=== PATIENT | female | born 1975 | race Caucasian/White ===

== ENCOUNTER 2017-04-20 21:54 | Emergency (ER) | payer MEDICAID ==
[2017-04-20] MEDS ORDERED: ONDANSETRON HCL IV 4 MG/2 ML VIAL IVP ONE (22:13)
[2017-04-20] MEDS ORDERED: MORPHINE SULFATE 5 MG/ML PFS IVP ONE (22:13)
[2017-04-20] MEDS ORDERED: 0.9 % SODIUM CHLORIDE 1000ML 1,000 ML IV SCH (22:15)
--- NOTE | 2017-04-20 22:16 | Emergency Department Record ---
History of Present Illness - General Chief complaint: Flank Pain Stated complaint: RT FLANK PAIN Time Seen by Provider: 04/20/17 22:12 Source: Patient Mode of Arrival: Ambulatory Limitations: No limitations - History of Present Illness Initial comments: 41 yo female presents to ED with a CC of right sided flank pain symptoms for the past 2 days, initially intermittent but becoming more persistent. Patient reports similar symptoms related to kidney stones. Patient denies fevers, chills, nausea, or vomiting symptoms, denies abdominal pain symptoms as well. Patient denies previous abdominal surgeries and denies health problems other than HTN. MD Complaint: Other (flank pain) Onset/Timin -: Days(s) Severity: Severe Severity scale (1-10): 8 Quality: Other Consistency: Constant Improves with: None Worsens with: Other Associated Symptoms: Denies other symptoms - Related Data Home Medications Medication Instructions Recorded Confirmed Last Taken Amlodipine Besylate [Norvasc] 20 mg PO DAILY 04/20/17 04/20/17 Unknown Atorvastatin Calcium [Lipitor] 10 mg PO DAILY 04/20/17 04/20/17 Unknown Pantoprazole Sodium [Protonix] 40 mg PO DAILY 04/20/17 04/20/17 Unknown Previous Rx's Medication Instructions Recorded Ibuprofen [Motrin 600Mg] 600 mg PO Q6H #30 tablet 04/20/17 Allergies Allergy/AdvReac Type Severity Reaction Status Date / Time sulfamethoxazole Allergy SWELLING Verified 04/20/17 22:03 [From Bactrim] OF THE FACE tramadol Allergy ITCHING Verified 04/20/17 22:03 trimethoprim [From Bactrim] Allergy SWELLING Verified 04/20/17 22:03 OF THE FACE Travel Screening - Travel/Exposure Within Last 30 Days Have you traveled within the last 30 days?: No - Travel/Exposure Within Last Year Have you traveled outside the [place] in the last year?: No - Additonal Travel Details Have you been exposed to anyone with a communicable illness?: No - Travel Symptoms Symptom Screening: None Review of Systems Constitutional: Denies: Chills, Fever, Malaise, Night sweats Eyes: Denies: Eye discharge, Eye pain ENT: Denies: Congestion, Ear pain, Epistaxis Respiratory: Denies: Cough, Dyspnea Cardiovascular: Denies: Chest pain, Dyspnea on exertion Endocrine: Denies: Fatigue, Heat or cold intolerance Gastrointestinal: Denies: Abdominal pain, Nausea, Vomiting Genitourinary: Denies: Incontinence, Retention Musculoskeletal: Reports: Back pain. Denies: Arthralgia, Gout, Joint swelling Skin: Denies: Bruising, Change in color Neurological: Denies: Abnormal gait, Confusion, Headache, Seizure Psychiatric: Denies: Anxiety Hematological/Lymphatic: Denies: Anemia, Blood Clots Past Medical History - SOCIAL HISTORY Smoking Status: Current every day smoker Alcohol Use: None Drug Use: None - RESPIRATORY Hx Respiratory Disorders: No - CARDIOVASCULAR Hx Cardio Disorders: Yes Hx Hypertension: Yes - NEURO Hx Neuro Disorders: No - GI Hx GI Disorders: No - Hx Genitourinary Disorders: Yes Hx Kidney Stones: Yes - ENDOCRINE Hx Endocrine Disorders: No - MUSCULOSKELETAL Hx Musculoskeletal Disorders: No - PSYCH Hx Psych Problems: No - HEMATOLOGY/ONCOLOGY Hx Hematology/Oncology Disorders: No Family Medical History Any Significant Family History?: No Physical Exam - General General Appearance: Alert, Oriented x3, Cooperative, Moderate distress Limitations: No limitations - Head Head exam: Atraumatic, Normocephalic, Normal inspection Head exam detail: negative: Abrasion, Contusion, Radford's sign, General tenderness, Hematoma, Laceration - Eye Eye exam: Normal appearance. negative: Conjunctival injection, Periorbital swelling, Periorbital tenderness, Scleral icterus - ENT Ear exam: negative: Auricular hematoma, Auricular trauma Nasal Exam: negative: Active bleeding, Discharge, Dried blood, Foreign body Mouth exam: negative: Drooling, Laceration, Muffled voice, Tongue elevation - Neck Neck exam: Normal inspection. negative: Meningismus, Tenderness - Respiratory Respiratory exam: Normal lung sounds bilaterally. negative: Rales, Respiratory distress, Rhonchi, Stridor - Cardiovascular Cardiovascular Exam: Regular rate, Normal rhythm, Normal heart sounds - GI/Abdominal GI/Abdominal exam: Soft. negative: Rebound, Rigid, Tenderness - Rectal Rectal exam: Deferred - exam: Deferred - Extremities Extremities exam: Normal inspection. negative: Calf tenderness, Pedal edema, Tenderness - Back Back exam: Reports: CVA tenderness (R). Denies: CVA tenderness (L) - Neurological Neurological exam: Alert, Normal gait, Oriented X3 - Psychiatric Psychiatric exam: Normal affect, Normal mood - Skin Skin exam: Normal color. negative: Abrasion Type of lesion: negative: abrasion Course Vital Signs 04/20/17 21:58 Temperature 98.1 F Pulse Rate 83 Respiratory 20 Rate Blood Pressure 180/101 Pulse Ox 96 - Reevaluation(s) Reevaluation #1: 04/20/17 22:48 Labs reviewed, WBC 12.5, UA appears negative for infection or blood. Labs are otherwise grossly unremarkable for an acute process. Patient is currently in CT imaging currently. Reevaluation #2: 04/20/17 23:09 CT Abdomen and Pelvis: No hydronephrosis or urinary tract calculi, small amount FF cul-de-sac/right adenexal region suggesting possible hemorrhagic cyst. Patient was updated on all results and normal UA, does report improvment in her pain symptoms. Given her results, symptoms are likely the result of an ovarian cyst that may have burst. Patient appears stable for discharge with continued symptomatic care as needed with Motrin 600 mg for her pain symptoms. Medical Decision Making - Lab Data Result diagrams: 04/20/17 22:07 04/20/17 22:07 Disposition Disposition: Discharge Clinical Impression: Flank pain, Hemorrhagic cyst of ovary Disposition: Home, Self-Care Condition: (2) Stable Instructions: Flank Pain (ED) Additional Instructions: Return to ED if your symptoms worsen or if you have any concerns. Motrin 600 mg as needed for your pain symptoms. Follow-up with your family doctor in 3-5 days as directed. Prescriptions: Ibuprofen [Motrin 600Mg] 600 mg PO Q6H #30 tablet Forms: Patient Portal Access Time of Disposition: 23:13 Quality - Quality Measures Quality Measures: N/A - Blood Pressure Screening Does Patient Have Any of the Following: No Blood Pressure Classification: Hypertensive Reading Systolic Measurement: 180 Diastolic Measurement: 101 Screening for High Blood Pressure: < First Hypertensive BP, F/U Documented > [ G8950] First Hypertensive Follow-up Interventions: Referral to alternative/primary care provider.
[2017-04-20 22:21] LABS: BASO % 0.3 % (0-6); EOS % 3.4 % (0-6); GRAN % 57.2 % (47-80); HEMOGLOBIN 14.4 gm/dl (11.6-16.0); LYMPH % 29.7 % (16-45); MEAN CELL VOLUME 91.7 fl (81-97); MEAN CORPUSCULAR HEMOGLOBIN 31.4 pg (27-33); MEAN CORPUSCULAR HGB CONC 34.3 g/dl (32-36); MEAN PLATELET VOLUME 10.1 fl (7.4-10.4); MONO % 9.4 % (0-9); PLATELET COUNT 300 K/uL (130-400); RED BLOOD COUNT 4.58 M/uL (3.80-5.40); RED CELL DISTRIBUTION WIDTH 12.7 % (11.5-14.5); WHITE BLOOD COUNT W/O DIFF 12.5 K/uL (4.2-12.2)
[2017-04-20 22:35] LABS: URINE APPEARANCE CLEAR; URINE BILIRUBIN NEGATIVE (NEGATIVE); URINE BLOOD SMALL (NEGATIVE); URINE COLOR YELLOW; URINE GLUCOSE (UA) NEGATIVE (NEGATIVE); URINE KETONE NEGATIVE (NEGATIVE); URINE LEUKOCYTE ESTERASE NEGATIVE (NEGATIVE); URINE NITRITE NEGATIVE (NEGATIVE); URINE PROTEIN NEGATIVE (NEGATIVE); URINE UROBILINOGEN 0.2 E.U./dL (0.20 - 1.00)
[2017-04-20 22:38] LABS: ALB/GLOB RATIO 1.5 (1.1-1.8); ALKALINE PHOSPHATASE 82 U/L (35-104); ALT/SGPT 14 U/L (<33); AST/SGOT 15 U/L (10.0-35.0); BILIRUBIN,TOTAL < 0.20 mg/dL (0.2-1.0); BLOOD UREA NITROGEN 7 mg/dL (6-20); CREATININE 0.7 mg/dL (0.5-0.9); EST GLOMERULAR FILTRATION RATE > 60 mL/min; GLUCOSE,RANDOM 127 mg/dL (74-109); TOTAL PROTEIN 6.7 g/dL (6.6-8.7)
[2017-04-20 22:42] LABS: URINE EPITHELIAL CELLS 0 - 2 (FEW); URINE RBC 0 - 2 (NONE SEEN); URINE WBC 0 - 2 (0-2/hpf)
--- NOTE | 2017-04-22 10:39 | CT SCAN REPORT ---
EXAM: CT SCAN OF THE ABDOMEN AND PELVIS HISTORY: PATIENT HAS RIGHT FLANK PAIN RADIATING DOWNWARDS. TECHNIQUE: Serial axial CT scan of the abdomen and pelvis was performed at 3.75 mm intervals from the dome of the diaphragm down to the pubic symphysis without the use of intravenous contrast. No comparison CT's are available. FINDINGS: Lung windows of the lung bases demonstrate no CT evidence of focal infiltrate or pleural effusion. The visualized heart size and contour is within normal limits. The liver, spleen, pancreas, bilateral adrenal glands, and gallbladder are unremarkable. There is no CT evidence of hydronephrosis or hydroureter. No renal or ureteral calculi are noted. The contour and caliber of the noncontrasted abdominal aorta is within normal limits. There is no CT evidence of retroperitoneal, pelvic, or inguinal lymphadenopathy. The bowel gas pattern is nonspecific and nonobstructive. There is no CT evidence of free intraperitoneal air. The appendix is not clearly visualized, however, there is no gross CT evidence of appendicitis. The urinary bladder is unremarkable. The uterus is unremarkable. Minimal fluid is noted within the right adnexal region. There is a questionable right ovarian cyst. These findings may represent a hemorrhagic ovarian cyst. If there is further clinical concern then ultrasound examination of the pelvis can be obtained for further evaluation. Bone windows demonstrate no CT evidence of a fracture or dislocation of the visualized osseous structures. IMPRESSION: 1. NO CT EVIDENCE OF RENAL OR URETERAL CALCULI. 2. MINIMAL FLUID WITHIN THE RIGHT ADNEXAL REGION AND POSTERIOR CUL-DE-SAC ARE NOTED. THESE FINDINGS MAY BE THE RESULT OF HEMORRHAGIC RIGHT OVARIAN CYST. CLINICAL CORRELATION IS RECOMMENDED. JOB NUMBER: [id number] [facility]
== END 2017-04-20 23:23 | disposition home or self-care (01) ==
LOC: ER 21:54
DX: N83.201 Unspecified ovarian cyst, right side (principal); I10 Essential (primary) hypertension; F17.210 Nicotine dependence, cigarettes, uncomplicated
CPT/HCPCS: 99284 ×2; 96374; 96375; 85025; 80053; 81001; 74176; J2405; J2270; J7030

== ENCOUNTER 2017-04-21 13:31 | Emergency (ER) | payer MEDICAID ==
--- NOTE | 2017-04-21 13:49 | Emergency Department Record ---
History of Present Illness - General Chief complaint: Flank Pain Stated complaint: LRQ BACK PAIN RADIATING DOWN RT LEG Time Seen by Provider: 04/21/17 13:35 Source: Patient Mode of Arrival: Ambulatory Limitations: No limitations - History of Present Illness Initial comments: The patient is here due to R lower back pain for 3 days. The pain onset was gradual and it intermittently radiates down the R anterior thigh. The pain is much worse with any movement and twisting and bending. There is no leg numbness , weakness, or any bowel or bladder issues. The patient also denies any AP or dysuria. She was in the ER last night for the same issues and had a neg CT for Kidney stones. Her lab work also was normal. She denies any hx of fevers or trauma. MD Complaint: Other Onset/Timin -: Days(s) Location: Other Radiation: R flank Severity: Severe Severity scale (1-10): 8 Quality: Sharp, Stabbing Consistency: Constant Improves with: None Worsens with: None LMP Date: 04/07/17 Gestational Age (wks) based on LMP: 2 Associated Symptoms: Denies other symptoms - Related Data Previous Rx's Medication Instructions Recorded Ibuprofen [Motrin 600Mg] 600 mg PO Q6H #30 tablet 04/20/17 Cyclobenzaprine HCl [Flexeril] 10 mg PO TID PRN #20 tablet 04/21/17 Lidocaine Patch [Lidoderm] 1 ea TOP DAILY #7 patch 04/21/17 Allergies Allergy/AdvReac Type Severity Reaction Status Date / Time sulfamethoxazole Allergy SWELLING Verified 04/20/17 22:03 [From Bactrim] OF THE FACE tramadol Allergy ITCHING Verified 04/20/17 22:03 trimethoprim [From Bactrim] Allergy SWELLING Verified 04/20/17 22:03 OF THE FACE Travel Screening - Travel/Exposure Within Last 30 Days Have you traveled within the last 30 days?: No - Travel/Exposure Within Last Year Have you traveled outside the [place] in the last year?: No - Additonal Travel Details Have you been exposed to anyone with a communicable illness?: No - Travel Symptoms Symptom Screening: None Review of Systems Constitutional: Denies: Chills, Fever Eyes: Denies: Eye discharge ENT: Denies: Congestion Respiratory: Denies: Cough, Dyspnea Past Medical History - SOCIAL HISTORY Smoking Status: Current every day smoker Alcohol Use: None Drug Use: None - RESPIRATORY Hx Respiratory Disorders: No - CARDIOVASCULAR Hx Cardio Disorders: Yes Hx Hypertension: Yes - NEURO Hx Neuro Disorders: No - GI Hx GI Disorders: No - Hx Genitourinary Disorders: Yes Hx Kidney Stones: Yes - ENDOCRINE Hx Endocrine Disorders: No - MUSCULOSKELETAL Hx Musculoskeletal Disorders: No - PSYCH Hx Psych Problems: No - HEMATOLOGY/ONCOLOGY Hx Hematology/Oncology Disorders: No Family Medical History Any Significant Family History?: No Physical Exam - General General Appearance: Alert, Cooperative, No acute distress - Head Head exam: Atraumatic, Normocephalic, Normal inspection - Eye Eye exam: Normal appearance, PERRL - Neck Neck exam: Normal inspection, Full ROM. negative: Tenderness - Respiratory Respiratory exam: Normal lung sounds bilaterally. negative: Respiratory distress - Cardiovascular Cardiovascular Exam: Regular rate, Normal rhythm, Normal heart sounds - GI/Abdominal GI/Abdominal exam: Soft, Normal bowel sounds. negative: Distended, Rigid, Tenderness - Extremities Extremities exam: Normal inspection, Full ROM, Normal capillary refill. negative: Tenderness - Back Back exam: Reports: Normal inspection, Paraspinal tenderness (R lower lumbar area. Palpation of this area reproduces the pain 100%. There is no pain when not moving or palpating.), Other (Neg SLR bilaterally.). Denies: CVA tenderness (R), CVA tenderness (L), Full ROM, Vertebral tenderness - Neurological Neurological exam: Alert, Normal gait, Oriented X3, Reflexes normal (The patella and achilles reflexes are 2+ and equal bilaterally.). negative: Abnormal gait, Altered, Motor sensory deficit Course Vital Signs 04/21/17 13:35 Temperature 98.2 F Pulse Rate 83 Respiratory 16 Rate Blood Pressure 153/89 Pulse Ox 99 - Reevaluation(s) Reevaluation #1: The patient is resting comfortably. The pain is still very reproducible to palpation and movement. I explained to her that we will be treating her with muscle relaxers and Lidoderm and she is to see her PCP this week for recheck. 04/21/17 14:29 Reevaluation #2: The patient is doing better at this time. She is up walking with no difficulty. She will be off work today and see her PCP early this week if needed. 04/21/17 14:47 Disposition Disposition: Discharge Clinical Impression: Lumbar paraspinal muscle spasm Disposition: Home, Self-Care Condition: (1) Good Instructions: Muscle Spasm (ED) Additional Instructions: Please continue your Motrin and add the Flexeril and Lidoderm. Please rest when possible and see your PCP for recheck later this week. Return to the ER for any increased pain, leg numbness, weakness or any bowel or bladder incontinence or difficulty. Prescriptions: Cyclobenzaprine HCl [Flexeril] 10 mg PO TID PRN #20 tablet PRN Reason: Pain Lidocaine Patch [Lidoderm] 1 ea TOP DAILY #7 patch Forms: Patient Portal Access Time of Disposition: 14:33 Quality - Quality Measures Quality Measures: N/A - Blood Pressure Screening View Details: Yes Does Patient Have Any of the Following: No Blood Pressure Classification: Hypertensive Reading Systolic Measurement: 174 Diastolic Measurement: 94 Screening for High Blood Pressure: < Pre-Hypertensive BP, F/U Documented > [ G8950] Pre-Hypertensive Follow-up Interventions: Referral to alternative/primary care provider.
[2017-04-21] MEDS ORDERED: ORPHENADRINE CITRATE 60MG/2ML VIAL IM ONE (13:52)
[2017-04-21] MEDS ORDERED: KETOROLAC 30 MG/ML VIAL IM ONE (13:52)
[2017-04-21 14:02] LABS: URINE APPEARANCE CLEAR; URINE BILIRUBIN NEGATIVE (NEGATIVE); URINE BLOOD TRACE-I (NEGATIVE); URINE COLOR YELLOW; URINE GLUCOSE (UA) NEGATIVE (NEGATIVE); URINE KETONE NEGATIVE (NEGATIVE); URINE LEUKOCYTE ESTERASE NEGATIVE (NEGATIVE); URINE NITRITE NEGATIVE (NEGATIVE); URINE PROTEIN NEGATIVE (NEGATIVE)
[2017-04-21 14:11] LABS: HCG,QUALITATIVE URINE NEGATIVE (NEGATIVE)
[2017-04-21 14:19] LABS: URINE BACTERIA FEW; URINE EPITHELIAL CELLS 0 - 2 (FEW); URINE WBC 0 - 2 (0-2/hpf)
[2017-04-21] MEDS ORDERED: LIDOCAINE 5% PATCH TOP ONE (14:26)
[2017-04-21] MEDS ORDERED: HYDROCODONE/APAP 5/325MG TABLET PO ONE (14:27)
== END 2017-04-21 14:53 | disposition home or self-care (01) ==
LOC: ER 13:31
DX: M62.830 Muscle spasm of back (principal); M79.651 Pain in right thigh; I10 Essential (primary) hypertension; F17.210 Nicotine dependence, cigarettes, uncomplicated
CPT/HCPCS: 99283 ×2; 96372; 81001; 81025; J1885; J2360

== ENCOUNTER 2018-07-23 19:47 | Emergency (ER) | payer BC, MEDICAID ==
--- NOTE | 2018-07-23 19:57 | Emergency Department Record ---
History of Present Illness - General Chief Complaint: Cough Stated Complaint: TAYLOR,HEADACHE Time Seen by Provider: 07/23/18 19:53 Source: Patient Mode of Arrival: Ambulatory Limitations: No limitations - History of Present Illness Initial Comments: 42 yo female presents to ED for evaluation of cough and congestion symptoms for the past 1 week, denies fevers/chills. Patient reports a history of asthma as well, reports that she saw her PCP 5-7 days ago and was started on prednisone at that time. Patient reports a history of pneumonia and is concerned about a reoccurrence. Patient denies chest pain or pain with inspiration, denies calf swelling, and denies OCP use. MD Complaint: Cough Onset/Timin -: Week(s) Severity: Moderate Quality: Aching Consistency: Constant Improves With: Nothing Worsens With: Nothing Treatments Prior to Arrival: None - Related Data Previous Rx's Medication Instructions Recorded Benzonatate [Tessalon] 2 cap PO Q8H PRN #30 cap 07/23/18 Allergies Allergy/AdvReac Type Severity Reaction Status Date / Time sulfamethoxazole Allergy SWELLING Verified 04/20/17 22:03 [From Bactrim] OF THE FACE tramadol Allergy ITCHING Verified 04/20/17 22:03 trimethoprim [From Bactrim] Allergy SWELLING Verified 04/20/17 22:03 OF THE FACE Review of Systems Constitutional: Denies: Chills, Fever, Malaise, Night sweats Eyes: Denies: Eye discharge, Eye pain ENT: Reports: Congestion. Denies: Ear pain, Epistaxis Respiratory: Reports: Cough. Denies: Dyspnea Cardiovascular: Denies: Chest pain, Dyspnea on exertion Endocrine: Denies: Fatigue, Heat or cold intolerance Gastrointestinal: Denies: Abdominal pain, Nausea, Vomiting Genitourinary: Denies: Incontinence, Retention Musculoskeletal: Denies: Arthralgia, Back pain Skin: Denies: Bruising, Change in color Neurological: Reports: Headache. Denies: Abnormal gait, Confusion, Seizure Psychiatric: Denies: Anxiety Hematological/Lymphatic: Denies: Anemia, Blood Clots Past Medical History - SOCIAL HISTORY Smoking Status: Current every day smoker Drug Use: None - RESPIRATORY Hx Respiratory Disorders: No - CARDIOVASCULAR Hx Cardio Disorders: Yes Hx Hypertension: Yes - NEURO Hx Neuro Disorders: No - GI Hx GI Disorders: No - Hx Genitourinary Disorders: Yes Hx Kidney Stones: Yes - ENDOCRINE Hx Endocrine Disorders: No - MUSCULOSKELETAL Hx Musculoskeletal Disorders: No - PSYCH Hx Psych Problems: No - HEMATOLOGY/ONCOLOGY Hx Hematology/Oncology Disorders: No Physical Exam - General General Appearance: Alert, Oriented x3, Cooperative, Mild distress Limitations: No limitations - Head Head exam: Atraumatic, Normocephalic, Normal inspection Head exam detail: negative: Abrasion, Contusion, Radford's sign, General tenderness, Hematoma, Laceration - Eye Eye exam: Normal appearance. negative: Conjunctival injection, Periorbital swelling, Periorbital tenderness, Scleral icterus - ENT Ear exam: negative: Auricular hematoma, Auricular trauma Nasal Exam: negative: Active bleeding, Discharge, Dried blood, Foreign body Mouth exam: negative: Drooling, Laceration, Muffled voice, Tongue elevation - Neck Neck exam: Normal inspection. negative: Meningismus, Tenderness - Respiratory Respiratory exam: Normal lung sounds bilaterally, Other (No crackles or wheezing present on examination). negative: Rales, Respiratory distress, Rhonchi, Stridor - Cardiovascular Cardiovascular Exam: Normal rhythm, Normal heart sounds, Tachycardia - GI/Abdominal GI/Abdominal exam: Soft. negative: Rebound, Rigid, Tenderness - Rectal Rectal exam: Deferred - exam: Deferred - Extremities Extremities exam: Normal inspection. negative: Calf tenderness, Pedal edema, Tenderness - Back Back exam: Denies: CVA tenderness (R), CVA tenderness (L) - Neurological Neurological exam: Alert, Normal gait, Oriented X3 - Psychiatric Psychiatric exam: Normal affect, Normal mood - Skin Skin exam: Normal color. negative: Abrasion Type of lesion: negative: abrasion Course - Reevaluation(s) Reevaluation #1: 07/23/18 20:22 CXR: No acute process Patient was updated on all results, reports that she has been using inhalers at home for her symptoms. Symptoms appear c/w bronchitis, no evidence for bacterial source of infection. Will treat with Tessalon for her cough symptoms with instructions to follow-up with her PCP in 3-5 days. Disposition Disposition: Discharge Clinical Impression: Bronchitis Disposition: Home, Self-Care Condition: (2) Stable Instructions: Acute Bronchitis (ED) Additional Instructions: Return to ED if your symptoms worsen or if you have any concerns. Donovan Rader as directed. Follow-up with your family doctor in 3-5 days as directed. Prescriptions: Benzonatate [Tessalon] 2 cap PO Q8H PRN #30 cap PRN Reason: Cough Forms: Patient Portal Access Time of Disposition: 20:24 Quality - Quality Measures Quality Measures: N/A - Blood Pressure Screening Does Patient Have Any of the Following: No Blood Pressure Classification: Hypertensive Reading Systolic Measurement: 170 Diastolic Measurement: 115 Screening for High Blood Pressure: < First Hypertensive BP, F/U Documented > [ G8950] First Hypertensive Follow-up Interventions: Referral to alternative/primary care provider.
--- NOTE | 2018-07-25 09:59 | RADIOLOGY REPORT ---
EXAM: CHEST, TWO VIEWS HISTORY: COUGH FOR ONE WEEK. TECHNIQUE: Two views of the chest were obtained. Comparison: None. FINDINGS: The cardiac silhouette is within normal size limits. No focal pulmonary consolidation. No pleural effusion or pneumothorax. IMPRESSION: NO ACUTE LUNG FINDINGS. JOB NUMBER: [id number] [facility]
== END 2018-07-23 20:36 | disposition home or self-care (01) ==
LOC: ER 19:47
DX: J20.9 Acute bronchitis, unspecified (principal); R51 Headache; R06.00 Dyspnea, unspecified; I10 Essential (primary) hypertension; F17.210 Nicotine dependence, cigarettes, uncomplicated
CPT/HCPCS: 71046; 99283

== ENCOUNTER 2018-10-12 16:49 | Emergency (ER) | payer BC, MEDICAID ==
[2018-10-12] MEDS ORDERED: PROMETHAZINE HCL 25 MG/ML VIAL IM ONE (17:26)
[2018-10-12] MEDS ORDERED: 0.9 % SODIUM CHLORIDE 1,000 ML BAG IV ONE (17:26)
[2018-10-12 17:42] LABS: BASO % 0.3 % (0-6); EOS % 3.6 % (0-6); GRAN % 57.7 % (47-80); HEMOGLOBIN 14.7 gm/dl (11.6-16.0); LYMPH % 27.9 % (16-45); MEAN CELL VOLUME 90.3 fl (81-97); MEAN CORPUSCULAR HEMOGLOBIN 30.2 pg (27-33); MEAN CORPUSCULAR HGB CONC 33.4 g/dl (32-36); MEAN PLATELET VOLUME 9.7 fl (7.4-10.4); MONO % 10.5 % (0-9); PLATELET COUNT 401 K/uL (130-400); RED BLOOD COUNT 4.87 M/uL (3.80-5.40); WHITE BLOOD COUNT W/O DIFF 13.5 K/uL (4.2-12.2)
[2018-10-12 17:52] LABS: INFLUENZA A NEGATIVE (NEGATIVE); INFLUENZA B NEGATIVE (NEGATIVE); STREP A SCREEN NEGATIVE (NEGATIVE)
[2018-10-12 17:53] LABS: BLOOD UREA NITROGEN 11 mg/dL (6-20); CREATININE 0.8 mg/dL (0.5-0.9); EST GLOMERULAR FILTRATION RATE > 60 mL/min; TOTAL PROTEIN 7.3 g/dL (6.6-8.7)
[2018-10-12 17:54] LABS: LIPASE 23 U/L (13-60)
[2018-10-12 17:55] LABS: GLUCOSE,RANDOM 92 mg/dL (74-109)
[2018-10-12 17:58] LABS: ALB/GLOB RATIO 1.5 (1.1-1.8); ALBUMIN 4.4 g/dL (4.0-5.0); ALKALINE PHOSPHATASE 81 U/L (35-104); ALT/SGPT 10 U/L (<33); AST/SGOT 11 U/L (10.0-35.0)
[2018-10-12 18:30] LABS: URINE APPEARANCE CLEAR; URINE BILIRUBIN NEGATIVE (NEGATIVE); URINE BLOOD SMALL (NEGATIVE); URINE COLOR YELLOW; URINE GLUCOSE (UA) NEGATIVE (NEGATIVE); URINE KETONE NEGATIVE (NEGATIVE); URINE LEUKOCYTE ESTERASE NEGATIVE (NEGATIVE); URINE NITRITE NEGATIVE (NEGATIVE); URINE PROTEIN NEGATIVE (NEGATIVE); URINE UROBILINOGEN 0.2 E.U./dL (0.20 - 1.00)
[2018-10-12 18:39] LABS: URINE RBC 0 - 2 (NONE SEEN); URINE WBC 0 - 2 (0-2/hpf)
--- NOTE | 2018-10-12 18:46 | Emergency Department Record ---
History of Present Illness - General Chief complaint: GI Bleed Stated complaint: VOMITING BLOOD,RAPID HEART RATE,LT HAND TINGLING Time Seen by Provider: 10/12/18 17:18 Source: Patient Mode of Arrival: Ambulatory Limitations: No limitations - History of Present Illness Initial comments: pt raquel felt well she states. she has n/v/c. she has no ap. she states she hasnt had a bm in 6 days.. she thought she had a black stool. she had blood streaking in her emesis today MD complaint: Blood streaked emesis Onset/Timin -: Days(s) Radiation: None Severity scale (1-10): 4 Consistency: Constant Associated Symptoms: Nausea, Vomiting Treatments Prior to Arrival: OTC meds - Related Data Home Medications Medication Instructions Recorded Confirmed Last Taken Albuterol Sulfate [Proair Hfa] 1 - 2 puff IH .EVERY 4-6 HOURS PRN 10/12/1810/12 1 Day Ago ~10/11/18 Metoprolol Tartrate [Lopressor] 25 mg PO Q12H 10/12/18 10/12/18 1 Day Ago ~10/11/18 Ondansetron [Zofran Odt] 4 mg PO BID 10/12/18 10/12/18 1 Day Ago ~10/11/18 Ropinirole HCl [Requip] 1.5 mg PO DAILY 10/12/18 10/12/18 1 Day Ago ~10/11/18 Tiotropium [place] [Spiriva] 1 puff IH DAILY 10/12/18 10/12/18 1 Day Ago ~10/11/18 Allergies Allergy/AdvReac Type Severity Reaction Status Date / Time sulfamethoxazole Allergy SWELLING Verified 10/12/18 17:01 [From Bactrim] OF THE FACE tramadol Allergy ITCHING Verified 10/12/18 17:01 trimethoprim [From Bactrim] Allergy SWELLING Verified 10/12/18 17:01 OF THE FACE Travel Screening - Travel/Exposure Within Last 30 Days Have you traveled within the last 30 days?: No - Travel/Exposure Within Last Year Have you traveled outside the [place] in the last year?: No - Additonal Travel Details Have you been exposed to anyone with a communicable illness?: No - Travel Symptoms Symptom Screening: None Review of Systems Reviewed: No additional complaints except as noted below Constitutional: Reports: As per HPI. Denies: Chills, Fever, Malaise, Night sweats, Weakness, Weight change Eyes: Reports: As per HPI. Denies: Eye discharge, Eye pain, Photophobia, Vision change ENT: Reports: As per HPI. Denies: Congestion, Dental pain, Ear pain, Epistaxis , Hearing loss, Throat pain Respiratory: Reports: As per HPI. Denies: Cough, Dyspnea, Hemoptysis, Stridor, Wheezes Cardiovascular: Reports: As per HPI. Denies: Arrhythmia, Chest pain, Dyspnea on exertion, Edema, Murmurs, Orthopnea, Palpitations, Paroxysmal nocturnal dyspnea, Rheumatic Fever, Syncope Endocrine: Reports: As per HPI. Denies: Fatigue, Heat or cold intolerance, Polydipsia, Polyuria Gastrointestinal: Reports: As per HPI, Constipation, Nausea, Vomiting. Denies: Abdominal pain, Diarrhea, Hematemesis, Hematochezia, Melena Genitourinary: Reports: As per HPI. Denies: Abnormal menses, Discharge, Dyspareunia, Dysuria, Frequency, Hematuria, Incontinence, Retention, Urgency Musculoskeletal: Reports: As per HPI. Denies: Arthralgia, Back pain, Gout, Joint swelling, Myalgia, Neck pain Skin: Reports: As per HPI. Denies: Bruising, Change in color, Change in hair/ nails, Lesions, Pruritus, Rash Neurological: Reports: As per HPI. Denies: Abnormal gait, Confusion, Headache, Numbness, Paresthesias, Seizure, Tingling, Tremors, Vertigo, Weakness Psychiatric: Reports: As per HPI. Denies: Anxiety, Auditory hallucinations, Depression, Homicidal thoughts, Suicidal thoughts, Visual hallucinations Hematological/Lymphatic: Reports: As per HPI. Denies: Anemia, Blood Clots, Easy bleeding, Easy bruising, Swollen glands Past Medical History - SOCIAL HISTORY Smoking Status: Current every day smoker Alcohol Use: Occasional Drug Use: None - RESPIRATORY Hx Respiratory Disorders: Yes Hx Asthma: Yes Hx Pneumonia: Yes - CARDIOVASCULAR Hx Cardio Disorders: Yes Hx Hypertension: Yes - NEURO Hx Neuro Disorders: Yes Hx Headaches: Yes - GI Hx GI Disorders: No - Hx Genitourinary Disorders: Yes Hx Kidney Stones: Yes - ENDOCRINE Hx Endocrine Disorders: No - MUSCULOSKELETAL Hx Musculoskeletal Disorders: No - PSYCH Hx Psych Problems: No - HEMATOLOGY/ONCOLOGY Hx Hematology/Oncology Disorders: No Family Medical History Any Significant Family History?: Yes Family Hx Comment (NOT TO BE USED IN PLACE OF ITEMS BELOW): denies Physical Exam - General General Appearance: Alert, Oriented x3, Cooperative, Mild distress - Head Head exam: Normal inspection - Eye Eye exam: Normal appearance, PERRL, EOMI Pupils: Normal accommodation - ENT ENT exam: Normal exam, Mucous membranes moist, Normal external ear exam, Normal orophraynx Ear exam: Normal external inspection. negative: External canal tenderness Nasal Exam: Normal inspection. negative: Discharge, Sinus tenderness Mouth exam: Normal external inspection, Tongue normal Teeth exam: Normal inspection. negative: Dental caries Throat exam: Normal inspection. negative: Tonsillar erythema, Tonsillar exudate - Neck Neck exam: Normal inspection, Full ROM. negative: Tenderness - Respiratory Respiratory exam: Normal lung sounds bilaterally. negative: Respiratory distress - Cardiovascular Cardiovascular Exam: Regular rate, Normal rhythm, Normal heart sounds - GI/Abdominal GI/Abdominal exam: Soft, Normal bowel sounds. negative: Tenderness - Rectal Rectal exam: Heme (-) stool, Other (soft stool) - exam: Deferred - Extremities Extremities exam: Normal inspection, Full ROM, Normal capillary refill. negative: Tenderness - Back Back exam: Reports: Normal inspection, Full ROM. Denies: Muscle spasm, Rash noted, Tenderness - Neurological Neurological exam: Alert, CN II-XII intact, Normal gait, Oriented X3 - Psychiatric Psychiatric exam: Normal affect, Normal mood - Skin Skin exam: Dry, Intact, Normal color, Warm Course Vital Signs 10/12/18 10/12/18 16:53 18:13 Temperature 98.3 F Pulse Rate 93 H Pulse Rate [ 76 Pulse Ox Probe] Respiratory 18 16 Rate Blood Pressure 193/119 Blood Pressure 152/100 [Left Arm] Pulse Ox 99 98 Medical Decision Making - Lab Data Result diagrams: 10/12/18 17:10 10/12/18 17:10 Lab Results 10/12/18 10/12/18 10/12/18 Range/Units 17:10 17:10 17:10 WBC 13.5 H (4.2-12.2) K/uL RBC 4.87 (3.80-5.40) M/uL Hgb 14.7 (11.6-16.0) gm/dl Hct 44.0 (35.0-47.0) % MCV 90.3 (81-97) fl MCH 30.2 (27-33) pg MCHC 33.4 (32-36) g/dl RDW 13.0 (11.5-14.5) % Plt Count 401 H (130-400) K/uL MPV 9.7 (7.4-10.4) fl Gran % 57.7 (47-80) % Lymphocytes % 27.9 (16-45) % Monocytes % 10.5 H (0-9) % Eosinophils % 3.6 (0-6) % Basophils % 0.3 (0-6) % Sodium 139 (136-145) mmol/L Potassium 3.4 (3.4-4.5) mmol/L Chloride 102 (98-107) mmol/L Carbon Dioxide 25.0 (22-29) mmol/L Anion Gap 12.0 (7-16) BUN 11 (6-20) mg/dL Creatinine 0.8 (0.5-0.9) mg/dL Estimated GFR > 60 mL/min Random Glucose 92 (74-109) mg/dL Lactic Acid (0.5-2.2) mmol/L Calcium 9.4 (8.6-10.0) mg/dL Total Bilirubin 0.20 (0.2-1.0) mg/dL AST 11 (10.0-35.0) U/L ALT 10 (<33) U/L Alkaline Phosphatase 81 (35-104) U/L Total Protein 7.3 (6.6-8.7) g/dL Albumin 4.4 (4.0-5.0) g/dL Globulin 2.9 (1.4-4.8) gm/dL Albumin/Globulin Ratio 1.5 (1.1-1.8) Lipase 23 (13-60) U/L Urine Color Urine Appearance Urine pH (5.0-8.0) Ur Specific [place] (1.002-1.030) Urine Protein (NEGATIVE) Urine Glucose (UA) (NEGATIVE) Urine Ketones (NEGATIVE) Urine Blood (NEGATIVE) Urine Nitrite (NEGATIVE) Urine Bilirubin (NEGATIVE) Urine Urobilinogen (0.20 - 1.00) E.U./dL Ur Leukocyte Esterase (NEGATIVE) Urine RBC (NONE SEEN) Urine WBC (0-2/hpf) Ur Epithelial Cells (FEW) Influenza Type A Ag Negative (NEGATIVE) Influenza Type B Ag Negative (NEGATIVE) Group A Strep Screen Negative (NEGATIVE) 10/12/18 10/12/18 Range/Units 17:10 18:30 WBC (4.2-12.2) K/uL RBC (3.80-5.40) M/uL Hgb (11.6-16.0) gm/dl Hct (35.0-47.0) % MCV (81-97) fl MCH (27-33) pg MCHC (32-36) g/dl RDW (11.5-14.5) % Plt Count (130-400) K/uL MPV (7.4-10.4) fl Gran % (47-80) % Lymphocytes % (16-45) % Monocytes % (0-9) % Eosinophils % (0-6) % Basophils % (0-6) % Sodium (136-145) mmol/L Potassium (3.4-4.5) mmol/L Chloride (98-107) mmol/L Carbon Dioxide (22-29) mmol/L Anion Gap (7-16) BUN (6-20) mg/dL Creatinine (0.5-0.9) mg/dL Estimated GFR mL/min Random Glucose (74-109) mg/dL Lactic Acid 1.2 (0.5-2.2) mmol/L Calcium (8.6-10.0) mg/dL Total Bilirubin (0.2-1.0) mg/dL AST (10.0-35.0) U/L ALT (<33) U/L Alkaline Phosphatase (35-104) U/L Total Protein (6.6-8.7) g/dL Albumin (4.0-5.0) g/dL Globulin (1.4-4.8) gm/dL Albumin/Globulin Ratio (1.1-1.8) Lipase (13-60) U/L Urine Color Yellow Urine Appearance Clear Urine pH 6.0 (5.0-8.0) Ur Specific [place] 1.020 (1.002-1.030) Urine Protein Negative (NEGATIVE) Urine Glucose (UA) Negative (NEGATIVE) Urine Ketones Negative (NEGATIVE) Urine Blood Small H (NEGATIVE) Urine Nitrite Negative (NEGATIVE) Urine Bilirubin Negative (NEGATIVE) Urine Urobilinogen 0.2 (0.20 - 1.00) E.U./dL Ur Leukocyte Esterase Negative (NEGATIVE) Urine RBC 0 - 2 (NONE SEEN) Urine WBC 0 - 2 (0-2/hpf) Ur Epithelial Cells 3 - 6 (FEW) Influenza Type A Ag (NEGATIVE) Influenza Type B Ag (NEGATIVE) Group A Strep Screen (NEGATIVE) Disposition Disposition: Discharge Clinical Impression: Vomiting Qualifiers: Vomiting type: unspecified Vomiting Intractability: non-intractable Nausea presence: with nausea Qualified Code(s): R11.2 - Nausea with vomiting, unspecified Constipation Qualifiers: Constipation type: unspecified constipation type Qualified Code(s): K59.00 - Constipation, unspecified Disposition: Home, Self-Care Condition: (1) Good Instructions: Acute Nausea and Vomiting (ED), Constipation (ED) Additional Instructions: follow up with family doctor and GI doctor if symptoms continue. return sooner if worse. clear liquids tonight. drink 1/2 of mag citrate tonight, repeat tomorrow if needed Quality - Quality Measures Quality Measures: N/A - Blood Pressure Screening Does Patient Have Any of the Following: Active Dx of HTN Blood Pressure Classification: Hypertensive Reading Systolic Measurement: 193 Diastolic Measurement: 119 Screening for High Blood Pressure: Patient Exclusion, Hx of HTN [G9744]
[2018-10-12] MEDS ORDERED: MAGNESIUM CITRATE 296 ML BTL PO ONE (18:51)
== END 2018-10-12 19:03 | disposition home or self-care (01) ==
LOC: ER 16:49
DX: R11.2 Nausea with vomiting, unspecified (principal); K59.00 Constipation, unspecified; R20.2 Paresthesia of skin; I10 Essential (primary) hypertension; F17.210 Nicotine dependence, cigarettes, uncomplicated
CPT/HCPCS: 80053; 81001; 83605; 83690; 85025; 87400; 87880; 96372; 99284; J2550; J7030

== ENCOUNTER 2019-01-31 22:04 | Emergency (ER) | payer BC, MEDICAID ==
--- NOTE | 2019-01-31 23:08 | Emergency Department Record ---
History of Present Illness - General Chief Complaint: Knee injury Stated Complaint: HUSTON AND PAINFUL KNEES Time Seen by Provider: 01/31/19 22:53 Source: Patient Mode of Arrival: Ambulatory - History of Present Illness Initial Comments: Patient has a myriad of complaints but states she came here because her knees swelled up and hurt and she can't bend them. Earlier in the even they were red in the front. She denies injury to her knees, stating she just sat around in a chair all day in her yard. 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 Yesterday she was at [facility] for dizziness and headache and was put on antivert for vertigo. On 01-19-19 she states she was at [facility] for a TIA but states she had no CT scan, and did not stay overnight. She says she was paralysed on her left side from her arm to her leg. She denies fevers, chills, knee injury, history of patellar problems. MD Complaint: Other (bilateral knee pain) Onset/Timin -: Hour(s) Type of Injury: Unknown Place: Other Severity: Moderate Severity scale (1-10): 5 Improves With: Nothing Worsens With: Palpation, Weight bearing Treatments Prior to Arrival: Other - Related Data Allergies Allergy/AdvReac Type Severity Reaction Status Date / Time sulfamethoxazole Allergy SWELLING Verified 10/12/18 17:01 [From Bactrim] OF THE FACE tramadol Allergy ITCHING Verified 10/12/18 17:01 trimethoprim [From Bactrim] Allergy SWELLING Verified 10/12/18 17:01 OF THE FACE Travel Screening - Travel/Exposure Within Last 30 Days Have you traveled within the last 30 days?: No - Travel Symptoms Symptom Screening: None Review of Systems Reviewed: No additional complaints except as noted below Constitutional: Reports: As per HPI. Denies: Chills, Fever, Malaise, Night sweats, Weakness, Weight change Eyes: Reports: As per HPI. Denies: Eye discharge, Eye pain, Photophobia, Vision change ENT: Reports: As per HPI. Denies: Congestion, Dental pain, Ear pain, Epistaxis, Hearing loss, Throat pain Respiratory: Reports: As per HPI. Denies: Cough, Dyspnea, Hemoptysis, Stridor, Wheezes Cardiovascular: Reports: As per HPI. Denies: Arrhythmia, Chest pain, Dyspnea on exertion, Edema, Murmurs, Orthopnea, Palpitations, Paroxysmal nocturnal dyspnea, Rheumatic Fever, Syncope Endocrine: Reports: As per HPI. Denies: Fatigue, Heat or cold intolerance, Polydipsia, Polyuria Gastrointestinal: Reports: As per HPI. Denies: Abdominal pain, Constipation, Diarrhea, Hematemesis, Hematochezia, Melena, Nausea, Vomiting Genitourinary: Reports: As per HPI. Denies: Abnormal menses, Discharge, Dyspareunia, Dysuria, Frequency, Hematuria, Incontinence, Retention, Urgency Musculoskeletal: Reports: As per HPI. Denies: Arthralgia, Back pain, Gout, Joint swelling, Myalgia, Neck pain Skin: Reports: As per HPI. Denies: Bruising, Change in color, Change in hair/nails, Lesions, Pruritus, Rash Neurological: Reports: As per HPI. Denies: Abnormal gait, Confusion, Headache, Numbness, Paresthesias, Seizure, Tingling, Tremors, Vertigo, Weakness Psychiatric: Reports: As per HPI. Denies: Anxiety, Auditory hallucinations, Depression, Homicidal thoughts, Suicidal thoughts, Visual hallucinations Hematological/Lymphatic: Reports: As per HPI. Denies: Anemia, Blood Clots, Easy bleeding, Easy bruising, Swollen glands Past Medical History - SOCIAL HISTORY Smoking Status: Current every day smoker - RESPIRATORY Hx Respiratory Disorders: Yes Hx Asthma: Yes Hx Pneumonia: Yes - CARDIOVASCULAR Hx Cardio Disorders: Yes Hx Hypertension: Yes - NEURO Hx Neuro Disorders: Yes Hx Headaches: Yes Hx TIA: Yes - GI Hx GI Disorders: No - Hx Genitourinary Disorders: Yes Hx Kidney Stones: Yes - ENDOCRINE Hx Endocrine Disorders: No - MUSCULOSKELETAL Hx Musculoskeletal Disorders: No - PSYCH Hx Psych Problems: No - HEMATOLOGY/ONCOLOGY Hx Hematology/Oncology Disorders: No Family Medical History Any Significant Family History?: Yes Family Hx Comment (NOT TO BE USED IN PLACE OF ITEMS BELOW): denies Physical Exam - General General Appearance: Alert, Oriented x3, Cooperative, No acute distress (mildly fidgety on the cart, repeatedly yawning) - Head Head exam: Normal inspection - Eye Eye exam: Normal appearance, PERRL, EOMI. negative: Conjunctival injection, Nystagmus Pupils: Normal accommodation - ENT ENT exam: Normal exam, Mucous membranes moist, Normal external ear exam, Normal orophraynx, TM's normal bilaterally Ear exam: Normal external inspection. negative: External canal tenderness Nasal Exam: Normal inspection. negative: Discharge, Sinus tenderness Mouth exam: Normal external inspection, Tongue normal Teeth exam: Normal inspection. negative: Dental caries Throat exam: Normal inspection. negative: Tonsillar erythema, Tonsillar exudate - Neck Neck exam: Normal inspection, Full ROM. negative: Lymphadenopathy, Meningismus, Tenderness - Respiratory Respiratory exam: Normal lung sounds bilaterally. negative: Respiratory distress - Cardiovascular Cardiovascular Exam: Regular rate, Normal rhythm, Normal heart sounds - GI/Abdominal GI/Abdominal exam: Soft, Normal bowel sounds. negative: Tenderness - Rectal Rectal exam: Deferred - exam: Deferred - Extremities Extremities exam: Normal inspection, Full ROM, Normal capillary refill, Other (tender with mild swelling over bilateral patellas, no cellulitis, CMS intact distally, no calf tenderness). negative: Tenderness - Back Back exam: Reports: Normal inspection, Full ROM. Denies: Muscle spasm, Rash noted, Tenderness - Neurological Neurological exam: Alert, Normal gait, Oriented X3, Reflexes normal. negative: Motor sensory deficit - Psychiatric Psychiatric exam: Normal affect, Normal mood - Skin Skin exam: Dry, Intact, Normal color, Warm Course Vital Signs 01/31/19 22:16 Temperature 98.4 F Pulse Rate [ 108 H Pulse Ox Probe] Respiratory 28 H Rate Blood Pressure 137/97 [Left Arm] Pulse Ox 100 - Reevaluation(s) Reevaluation #1: Disucssed results with patient. She is aware preliminary reading of her xrays are negative. All questions answered. Ready for DC. 01/31/19 23:41 Medical Decision Making - Data Complexity MDM Data: X-Ray Ordered and/or Reviewed Disposition Disposition: Discharge Clinical Impression: Bilateral anterior knee pain Disposition: Home, Self-Care Condition: (2) Stable Instructions: Patellofemoral Pain Syndrome (ED), Swollen Knee Joint (ED), Knee Pain (ED), Arthralgia (ED) Additional Instructions: Decreased ambulation. Ice alternated with heat to knees. Ibuprofen alternated with tylenol as directed as needed for pain. Purchase knee supports at local pharmacy PCP follow up for recheck in office this week. Quality - Quality Measures Quality Measures: N/A - Blood Pressure Screening Does Patient Have Any of the Following: No Blood Pressure Classification: Hypertensive Reading Systolic Measurement: 137 Diastolic Measurement: 97 Screening for High Blood Pressure: Patient Exclusion, Hx of HTN [Q1422]
[2019-01-31] MEDS ORDERED: ACETAMINOPHEN 500 MG TABLET PO ONE (23:09)
--- NOTE | 2019-02-02 09:29 | RADIOLOGY REPORT ---
EXAM: RIGHT KNEE HISTORY: ONSET OF REDNESS AND KNEE PAIN TODAY. NO INJURY. TECHNIQUE: Three views of the right knee were obtained. Comparison: None. FINDINGS: The right knee appears intact with no fracture, dislocation, or destructive lesion seen. No definite joint effusion evident and no prominent focal soft tissue swelling seen. IMPRESSION: THE RIGHT KNEE APPEARS ESSENTIALLY NEGATIVE DESCRIBED ABOVE. JOB NUMBER: [id number] MTDD
--- NOTE | 2019-02-02 09:31 | RADIOLOGY REPORT ---
EXAM: LEFT KNEE HISTORY: ONSET OF KNEE PAIN AND REDNESS TODAY, NO INJURY. TECHNIQUE: Three views of the left knee were obtained. Comparison: Left knee series 11/30/13. FINDINGS: There is probably some prepatellar soft tissue swelling. Elsewhere the left knee appears negative. No definite fracture, dislocation, or destructive lesion seen. No definite joint effusion evident. IMPRESSION: SOME PREPATELLAR SOFT TISSUE SWELLING LEFT KNEE. JOB NUMBER: [id number] MTDD
== END 2019-01-31 23:49 | disposition home or self-care (01) ==
LOC: ER 22:04
DX: M25.562 Pain in left knee (principal); M25.561 Pain in right knee; R51 Headache; I10 Essential (primary) hypertension; F17.210 Nicotine dependence, cigarettes, uncomplicated
CPT/HCPCS: 99283; 99284

== ENCOUNTER 2019-05-12 14:46 | Emergency (ER) | payer BC ==
[2019-05-12] MEDS ORDERED: ACETAMINOPHEN 500 MG TABLET PO ONE (15:43)
--- NOTE | 2019-05-12 15:53 | Emergency Department Record ---
History of Present Illness - General Chief complaint: Head Injury Stated complaint: HIT HEAD/DIZZINESS Time Seen by Provider: 05/12/19 15:39 Source: Patient Mode of Arrival: Ambulatory Limitations: No limitations Travel/Exposure to [facility] Within 21 Days of Symptoms: No - History of Present Illness Initial comments: pt states a metal rake fell on her head in her shed. she had no loc. it cut her head. she has a severe headache w nausea Complaint: Head injury Onset/Timin -: Minutes(s) Mechanism of Injury: Other Location: Occipital Loss of Consciousness: No Previous Trauma to this Area: No Place: Home, Outdoors Severity: Moderate Severity scale (1-10): 8 Quality: Aching, Sharp Consistency: Constant Provoking factors: None known Other Injuries: Laceration Associated Symptoms: Nausea - Related Data Allergies/Adverse reactions: Allergies Allergy/AdvReac Type Severity Reaction Status Date / Time sulfamethoxazole Allergy SWELLING Unverified 04/29/19 13:13 [From Bactrim] OF THE FACE trimethoprim [From Bactrim] Allergy SWELLING Unverified 04/29/19 13:13 OF THE FACE Travel Screening - Travel/Exposure Within Last 30 Days Have you traveled within the last 30 days?: No Review of Systems Reviewed: No additional complaints except as noted below Constitutional: Reports: As per HPI. Denies: Chills, Fever, Malaise, Night sweats, Weakness, Weight change Eyes: Reports: As per HPI. Denies: Eye discharge, Eye pain, Photophobia, Vision change ENT: Reports: As per HPI. Denies: Congestion, Dental pain, Ear pain, Epistaxis, Hearing loss, Throat pain Respiratory: Reports: As per HPI. Denies: Cough, Dyspnea, Hemoptysis, Stridor, Wheezes Cardiovascular: Reports: As per HPI. Denies: Arrhythmia, Chest pain, Dyspnea on exertion, Edema, Murmurs, Orthopnea, Palpitations, Paroxysmal nocturnal dyspnea, Rheumatic Fever, Syncope Endocrine: Reports: As per HPI. Denies: Fatigue, Heat or cold intolerance, Polydipsia, Polyuria Gastrointestinal: Reports: As per HPI. Denies: Abdominal pain, Constipation, Diarrhea, Hematemesis, Hematochezia, Melena, Nausea, Vomiting Genitourinary: Reports: As per HPI. Denies: Abnormal menses, Discharge, Dyspareunia, Dysuria, Frequency, Hematuria, Incontinence, Retention, Urgency Musculoskeletal: Reports: As per HPI. Denies: Arthralgia, Back pain, Gout, Joint swelling, Myalgia, Neck pain Skin: Reports: As per HPI. Denies: Bruising, Change in color, Change in hair/nails, Lesions, Pruritus, Rash Neurological: Reports: As per HPI, Headache. Denies: Abnormal gait, Confusion, Numbness, Paresthesias, Seizure, Tingling, Tremors, Vertigo, Weakness Psychiatric: Reports: As per HPI. Denies: Anxiety, Auditory hallucinations, Depression, Homicidal thoughts, Suicidal thoughts, Visual hallucinations Hematological/Lymphatic: Reports: As per HPI. Denies: Anemia, Blood Clots, Easy bleeding, Easy bruising, Swollen glands Past Medical History - SOCIAL HISTORY Smoking Status: Current every day smoker - RESPIRATORY Hx Respiratory Disorders: Yes Hx Asthma: Yes Hx Pneumonia: Yes - CARDIOVASCULAR Hx Cardio Disorders: Yes Hx Hypertension: Yes - NEURO Hx Neuro Disorders: Yes Hx Headaches: Yes Hx TIA: Yes - GI Hx GI Disorders: No - Hx Genitourinary Disorders: Yes Hx Kidney Stones: Yes - ENDOCRINE Hx Endocrine Disorders: No - MUSCULOSKELETAL Hx Musculoskeletal Disorders: No - PSYCH Hx Psych Problems: No - HEMATOLOGY/ONCOLOGY Hx Hematology/Oncology Disorders: No Family Medical History Any Significant Family History?: No Family Hx Comment (NOT TO BE USED IN PLACE OF ITEMS BELOW): denies Physical Exam - General General Appearance: Alert, Oriented x3, Cooperative, Mild distress - Head Head exam: Normal inspection Head exam detail: Contusion, Laceration Image of Face/Head: 1 - 1cm lac - Eye Eye exam: Normal appearance, PERRL, EOMI Pupils: Normal accommodation - ENT ENT exam: Normal exam, Mucous membranes moist, Normal external ear exam, Normal orophraynx Ear exam: Normal external inspection. negative: External canal tenderness Nasal Exam: Normal inspection. negative: Discharge, Sinus tenderness Mouth exam: Normal external inspection, Tongue normal Teeth exam: Normal inspection. negative: Dental caries Throat exam: Normal inspection. negative: Tonsillar erythema, Tonsillar exudate - Neck Neck exam: Normal inspection, Full ROM. negative: Tenderness - Respiratory Respiratory exam: Normal lung sounds bilaterally. negative: Respiratory distress - Cardiovascular Cardiovascular Exam: Regular rate, Normal rhythm, Normal heart sounds - GI/Abdominal GI/Abdominal exam: Soft, Normal bowel sounds. negative: Tenderness - Rectal Rectal exam: Deferred - exam: Deferred - Extremities Extremities exam: Normal inspection, Full ROM, Normal capillary refill. negative: Tenderness - Back Back exam: Reports: Normal inspection, Full ROM. Denies: Muscle spasm, Rash noted, Tenderness - Neurological Neurological exam: Alert, CN II-XII intact, Normal gait, Oriented X3 - Psychiatric Psychiatric exam: Normal affect, Normal mood - Skin Skin exam: Dry, Intact, Normal color, Warm Course Vital Signs 05/12/19 15:25 Temperature 98.0 F Pulse Rate 92 H Respiratory 18 Rate Blood Pressure 176/137 Pulse Ox 100 Disposition Disposition: Discharge Clinical Impression: Head injury Qualifiers: Encounter type: initial encounter Qualified Code(s): S09.90XA - Unspecified injury of head, initial encounter Laceration of scalp Qualifiers: Encounter type: initial encounter Qualified Code(s): S01.01XA - Laceration without foreign body of scalp, initial encounter Disposition: Home, Self-Care Condition: (1) Good Instructions: Head Injury (ED), Staple Care (ED) Additional Instructions: follow up with family doctor. return sooner if worse. staple out in 12-14 days Forms: Patient Portal Access Quality - Quality Measures Quality Measures: N/A - Blood Pressure Screening Does Patient Have Any of the Following: Active Dx of HTN Blood Pressure Classification: Hypertensive Reading Systolic Measurement: 176 Diastolic Measurement: 137 Screening for High Blood Pressure: Patient Exclusion, Hx of HTN [[id number]] Laceration - Head - Time Out Informed consent:: Informed consent obtained Confirmed first & last name, , procedure, correct site?: Yes - Location Location of laceration:: Superior Laceration located on:: Scalp Length of laceration:: 1 Length of laceration:: cm - Clean and Prep Laceration cleaning method:: Cleansed Laceration cleaning agent:: Betadine - Procedural Detail Tissue detail:: Torn Foreign body in the wound?: No Undermining was preformed?: No Stent applied?: No [place] applied?: Yes Total number of brian:: 1
--- NOTE | 2019-05-12 16:18 | CT SCAN REPORT ---
EXAMINATION: HEAD WO CONTRAST EXAM DATE: 05/12/2019 4:12 PM TECHNIQUE: Noncontrast axial images were obtained to the brain. INDICATION: injury COMPARISON: MR 03/07/2019 ENCOUNTER: Not applicable HAND DOMINANCE: Unknown FINDINGS: The brain parenchyma is unremarkable for age. No loss of pham-white matter differentiation or sulcal effacement to indicate acute infarction. No evidence of intracranial mass. The ventricles, sulci, and subarachnoid spaces are unremarkable for age. The basal cisterns are paten t and there is no midline shift or herniation. No intra-axial or extra-axial fluid collection. No evidence of intracranial hemorrhage. Mild ethmoid air cell mucosal thickening The paranasal sinuses, mastoid air cells, and orbits are ot herwise unremarkable. The calvarium is intact. IMPRESSION: 1. No CT evidence of intracranial hemorrhage or acute intracranial abnormality. Dictated by: DARCY ALEXANDER MD on 05/12/2019 4:16 PM. .
[2019-05-12] MEDS ORDERED: KETOROLAC 30 MG/ML VIAL IM ONE (17:20)
== END 2019-05-12 18:05 | disposition home or self-care (01) ==
LOC: ER 14:46
DX: S01.01XA Laceration without foreign body of scalp, initial encounter (principal); S09.90XA Unspecified injury of head, initial encounter; R42 Dizziness and giddiness; R51 Headache; R11.0 Nausea; I10 Essential (primary) hypertension; F17.210 Nicotine dependence, cigarettes, uncomplicated; W27.1XXA Contact with garden tool, initial encounter; Y93.H1 Activity, digging, shoveling and raking; Y92.007 Garden or yard of unspecified non-institutional (private) residence as the place of occurrence of the external cause
CPT/HCPCS: 12001; 70450; 96372; 99284; J1885